=== PATIENT | female | born 1955 | race Two or more races ===

== ENCOUNTER 2022-03-11 08:00 | Inpatient (IN) | payer OTHER ==
[2022-03-18] MEDS ORDERED: XARELTO10 MG PO (06:43)
[2022-03-18] MEDS ORDERED: OXYC1TAB9 PO (06:43)
[2022-03-18] MEDS ORDERED: BACTRIM DS TAB1 EACH PO (06:43)
[2022-03-18] MEDS ORDERED: INTEGRA PLUS C1 EACH PO (06:43)
== END 2022-03-18 13:09 | DRG 470 ==
LOC: O/R 03-16 07:43 → SURH 03-16 07:43
PROVIDERS: ADMIT Orthopaedic Surgery Sports Medicine; ATTEND Orthopaedic Surgery Sports Medicine
PROC: 0SRC0J9 Replacement of Right Knee Joint with Synthetic Substitute, Cemented, Open Approach (ICD-10-PCS; principal; 2022-03-16 08:30)
DX: M17.11 Unilateral primary osteoarthritis, right knee (principal); Z20.822 Contact with and (suspected) exposure to COVID-19